=== PATIENT | male | born 1935 | race Caucasian/White ===

== ENCOUNTER → 2016-08-18 | Outpatient (CLI) | payer OTHER, BC | LOC: FIMAGING 13:34 | PROVIDERS: ATTEND Family Medicine | DX: R07.89 Other chest pain (principal); R06.09 Other forms of dyspnea ==

== ENCOUNTER 2016-11-03 11:41 | Emergency (ER) | payer OTHER, BC ==
--- NOTE | 2016-11-03 13:10 | EDPHY ---
HPI/HX/ROS/PE/MDM Narrative: CHIEF COMPLAINT: Pill stuck in throat HPI: This patient is an 81 year old male complaining of a sensation of a pill stuck in his throat. Around 8:30 this morning, his gave him two Advil cold pills to help with a cough and stuffy nose developed 1.5 days ago. He tried to swallow the pill, and felt that it became stuck at the back of his throat. He has been able to swallow saliva and drink some water and root beer. He has not attempted any food. No shortness of breath. No history of problems with is throat or esophagus. He denies sore throat associated with his cold symptoms. REVIEW OF SYSTEMS: Aside from elements discussed in the HPI, a comprehensive 10-point review of systems was reviewed and is negative. PMH: Triple bypass 6 years ago. SOCIAL HISTORY: . Lives in [place]. PHYSICAL EXAM: General:Patient is alert, in no acute distress. ENT:Eyes are normal to inspection. ENT inspection normal. Neck: Normal inspection. Full range of motion. Respiratory:No respiratory distress. Breath sounds normal bilaterally. Cardiovascular: Regular rate and rhythm. Strong peripheral pulses. Normal cap refill. Abdomen:The abdomen is nontender to palpation. There are no peritoneal signs. There are normal bowel sounds. Back: Normal to inspection. No tenderness to palpation. Skin: Normal color. No rash. Warm and dry. Extremities: Normal appearance. Full range of motion. Neuro: Oriented x3. Normal motor function. Normal sensory function. Portions of this note were transcribed by an ED scribe. I personally performed the history, physical exam, and medical decision making; and confirm the accuracy of the information in the transcribed note. ED Course: No foreign body noted on exam. Plan for x-ray to further evaluate for foreign body. Plan to give patent Coca-Cola for relief of symptoms, dissolve and wash down pill. X-ray shows no acute abnormalities. Patient feels relief after Coca-Cola administration. Plan to discharge home in good condition. Return precautions discussed. He is comfortable with this plan. MDM: This patient presents with sensation of ibuprofen pill being stuck in his throat. He is able to tolerate water and his own secretions. This medication is not concerning for causing an esophageal erosion. The patient's symptoms were resolved with coca-cola, and his XR is normal. I think he is safe for further outpatient workup. - Data Points Imaging Results: Imaging Impressions Soft Tissue Neck X-Ray 11/03/16 13:10 Impression: 1. Normal radiographic appearance of the hypopharynx, proximal trachea, and proximal esophagus. No radiopaque foreign object identified. Esophagram may be necessary if there is concern for a nonradiopaque tablet within in the esophagus. 2. Multilevel cervical degenerative disk disease. Imaging: I viewed and interpreted images myself General Time Seen by Provider: 11/03/16 12:54 Initial Vital Signs: Initial Vital Signs Temperature (C) 36.7 C 11/03/16 11:42 Heart Rate 76 11/03/16 11:42 Respiratory Rate 18 11/03/16 11:42 Blood Pressure 108/74 11/03/16 11:42 O2 Sat (%) 91 L 11/03/16 11:42 O2 Delivery Mode Room Air Allergies/Adverse Reactions: No Allergies [NKA] Allergy (Verified 11/03/16 11:42) Home Medications: Medication Instructions Recorded Aspirin [Aspir 81] 81 mg PO DAILY 08/20/12 Atorvastatin Calcium [Lipitor 40 40 mg PO DAILY20 08/20/12 mg (*)] Niacin [Niacin 500 mg (*)] 500 mg PO HS 10/01/14 metFORMIN HCL [Glucophage 500 mg 500 mg PO DAILY 10/01/14 (*)] Bp Med 11/03/16 Departure - Departure Disposition: Home, Routine, Self-Care Clinical Impression: Pill dysphagia Condition: Good Instructions: Dysphagia (ED) Additional Instructions: 1. Follow up with a GI specialist within two weeks for continued evaluation of your difficulty swallowing. 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 2. Return to the emergency department if you develop difficulty breathing, continued difficulty swallowing, increased pain or discomfort in your throat, or other worsening of condition. Referrals: Yon Lugo MD [Primary Care Provider] - As per Instructions Otis Vegas MD [Medical Doctor] - As per Instructions Report Scribed for: Be Nguyễn Report Scribed by: Chiquita Yan Date of Report: 11/03/16 Time of Report: 14:06
[2016-11-03 15:39] VITALS: BP 108/63; PULSE 78; RESP 20; TEMP 98.2; O2SAT 98
== END 2016-11-03 15:39 | disposition home or self-care (01) ==
DX: R13.19 Other dysphagia (principal); Z79.82 Long term (current) use of aspirin; X58.XXXA Exposure to other specified factors, initial encounter; Y99.8 Other external cause status

== ENCOUNTER 2016-12-24 23:34 | Emergency (ER) | payer OTHER, BC ==
[2016-12-25] MEDS ORDERED: GLUCAGON,HUMAN RECOMBINANT 1 MG VIAL IVP ONE (00:10)
[2016-12-25 00:18] VITALS: TEMP 97.9
--- NOTE | 2016-12-25 00:57 | EDPHY ---
H & P Stated Complaint: fb in throat Time Seen by Provider: 12/24/16 23:52 HPI/ROS: HPI The patient presents with foreign body sensation in throat which has been present for the last several hours. This began after taking a dose of his niacin. He feels he has the pill lodged in his throat currently. He tried drinking some soda at home without any improvement in his symptoms, thus he came into the emergency room. He is unable to tolerate secretions, and has to spit into a bucket. He has a history of similar about 2 months ago, seen in the emergency room for this. The pills seemed to dislodge itself. He was referred to Gastroenterology , however the patient says he was seen by Ear Nose and Throat and some sort of endoscopy was performed. He has been referred to physical therapy.. REVIEW OF SYSTEMS Constitutional: No fever, no chills. Eyes: No discharge. ENT: No sore throat. Cardiovascular: No chest pain, no palpitations. Respiratory: No cough, no shortness of breath. Gastrointestinal: No abdominal pain, no vomiting. Genitourinary: No hematuria. Musculoskeletal: No back pain. Skin: No rashes. Neurological: No headache. PMHx: CAD, hypertension Soc Hx: Lives at home with his PHYSICAL General Appearance: Alert, uncomfortable appearing, coughing, spitting into a basin Eyes: Pupils equal and round no pallor or injection ENT, Mouth: Voice is slightly hoarse, Mucous membranes moist Respiratory: There are no retractions, lungs are clear to auscultation Cardiovascular: Regular rate and rhythm Gastrointestinal: Abdomen is soft and non-tender, no masses, bowel sounds normal Neurological: A&O, moves all extremities Skin: Warm and dry, no rashes Musculoskeletal: Neck is supple non tender Extremities: symmetrical, full range of motion Psychiatric: Patient is oriented X 3, there is no agitation Source: Patient, Old records Exam Limitations: No limitations - Personal History Current Tetanus/Diphtheria Vaccine: Unsure Current Tetanus Diphtheria and Acellular Pertussis (TDAP): Unsure Tetanus Vaccine Date: 2005 - Medical/Surgical History Hx Asthma: No Hx Chronic Respiratory Disease: No Hx Diabetes: No Hx Cardiac Disease: Yes Hx Renal Disease: No Hx Cirrhosis: No Hx Alcoholism: No Hx HIV/AIDS: No Hx Splenectomy or Spleen Trauma: No Other PMH: CAD w/ stent 2000, CABG 2010,Prostate CA, PROSTATECTOMY, CIRA, HTN, Hernia Repair - Social History Smoking Status: Never smoked Constitutional: Initial Vital Signs Temperature (C) 36.6 C 12/25/16 00:16 Heart Rate 80 12/25/16 00:16 Respiratory Rate 18 12/25/16 00:16 Blood Pressure 113/75 12/25/16 00:16 O2 Sat (%) 91 L 12/25/16 00:16 O2 Delivery Mode Room Air O2 (L/minute) 2 Allergies/Adverse Reactions: No Allergies [NKA] Allergy (Verified 11/03/16 11:42) Home Medications: Medication Instructions Recorded Aspirin [Aspir 81] 81 mg PO DAILY 08/20/12 Atorvastatin Calcium [Lipitor 40 40 mg PO DAILY20 08/20/12 mg (*)] Niacin [Niacin 500 mg (*)] 500 mg PO HS 10/01/14 metFORMIN HCL [Glucophage 500 mg 500 mg PO DAILY 10/01/14 (*)] Bp Med 11/03/16 Medical Decision Making - Diagnostics Imaging Results: Soft tissue neck x-ray demonstrates no obvious foreign body, no airway edema, interpreted by me, radiology interpretation is pending. Differential Diagnosis: This is a an 81-year-old male with foreign body sensation in throat with difficulty managing his secretions. Differential diagnosis includes aspiration , esophageal foreign body. In the emergency department, the patient was given a trial of Coca Cola which did not improve his symptoms. X-ray was obtained which demonstrated no obvious foreign body. He was ordered for glucagon, however before this he began to feel that the pill was passing. He was observed for about an hour after he felt the pill pass and continued to feel well. He had no foreign body sensation and was able to drink fluids without difficulty. I wonder if he has an upper esophageal stricture or blockage of some sort. He has been evaluated by ENT, I have encouraged him to follow up with Gastroenterology as well. He will be discharged from the emergency room. I have given him a dose of viscous lidocaine p.o. for some sore throat symptoms that he is currently having. - Data Points Medications Given: Discontinued Medications Glucagon (Glucagen) 1 mg IVP EDNOW ONE Stop: 12/25/16 00:11 Last Admin: 12/25/16 01:52 Dose: Not Given Lidocaine (Lidocaine 2% Viscous) 5 ml PO EDNOW ONE Stop: 12/25/16 01:42 Last Admin: 12/25/16 01:52 Dose: Not Given Departure - Departure Disposition: Home, Routine, Self-Care Clinical Impression: Foreign body in throat Qualifiers: Encounter type: initial encounter Qualified Code(s): T17.208A - Unspecified foreign body in pharynx causing other injury, initial encounter Condition: Good Instructions: Foreign Body in Pharynx (ED) Additional Instructions: Please follow-up with the Ear Nose and Throat doctor you have been seeing. You may need to follow up with Gastroenterology as well. Please call the doctor your previously referred to. Return to the ER if your worse in any way. Referrals: Yon Lugo MD [Primary Care Provider] - As per Instructions Otis Vegas MD [Medical Doctor] - As per Instructions
[2016-12-25] MEDS ORDERED: LIDOCAINE 2% VISCOUS 15 ML UDCUP PO ONE (01:41)
[2016-12-25 01:53] VITALS: BP 103/64; PULSE 66; RESP 16; O2SAT 91
== END 2016-12-25 01:53 | disposition home or self-care (01) ==
DX: T17.208A Unspecified foreign body in pharynx causing other injury, initial encounter (principal); I25.10 Atherosclerotic heart disease of native coronary artery without angina pectoris; I10 Essential (primary) hypertension; Z85.46 Personal history of malignant neoplasm of prostate; Z79.82 Long term (current) use of aspirin; X58.XXXA Exposure to other specified factors, initial encounter

== ENCOUNTER → 2017-01-22 | Outpatient (CLI) | payer OTHER, BC | LOC: FIMAGING 11:27 | PROVIDERS: ATTEND Internal Medicine | DX: K22.2 Esophageal obstruction (principal); K21.9 Gastro-esophageal reflux disease without esophagitis; K31.89 Other diseases of stomach and duodenum ==

== ENCOUNTER 2018-01-20 17:56 | Inpatient (IN) | payer OTHER, BC ==
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
[2018-01-20 18:20] LABS: PLATELET COUNT 227 10^3/uL (150-400)
[2018-01-20] MEDS ORDERED: ONDANSETRON DISINTEGRATING 4 MG TAB PO PRN (20:48)
[2018-01-20] MEDS ORDERED: ACETAMINOPHEN 325 MG TAB PO PRN (20:48)
[2018-01-20] MEDS ORDERED: ONDANSETRON 4 MG/2 ML VIAL IVP PRN (20:48)
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
[2018-01-20] MEDS: ALBUTEROL 3 ML DEYVIAL IH SCH (21:46)
[2018-01-20] MEDS ORDERED: FUROSEMIDE 20 MG/2 ML VIAL IVP ONE (22:21)
--- NOTE | 2018-01-21 00:03 | CPEKG ---
Test Reason : OPEN Blood Pressure : / mmHG Vent. Rate : 053 BPM Atrial Rate : 053 BPM P-R Int : 294 ms QRS Dur : 075 ms QT Int : 475 ms P-R-T Axes : 075 047 040 degrees QTc Int : 446 ms Sinus rhythm Prolonged DE interval Borderline ST elevation, lateral leads Confirmed by Mary Carmen Navarro ([id number] on 01/21/2018 12:03:16 AM Referred By: Confirmed By:Mary Carmen Navarro
[2018-01-21] MEDS: ALBUTEROL 3 ML DEYVIAL IH SCH ×3 (05:20→16:18)
[2018-01-21] MEDS ORDERED: BISOPROLOL FUMARATE 5 MG TAB PO SCH (09:00)
[2018-01-21] MEDS: ASPIRIN EC 81 MG TAB PO SCH (10:26)
[2018-01-21] MEDS: ATORVASTATIN CALCIUM 40 MG TAB PO SCH (10:26)
--- NOTE | 2018-01-21 10:29 | ECHO ---
[email or web address] [address] [address] Main: [phone] Fax: Transthoracic Echocardiogram Name: DERRICK DIAS MR#: [id number] Study Date: 01/21/2018 Study Time: 08:20 AM Date of : 1935 Age: 82 year(s) Height: 175.3 cm (69 in.) Weight: 78.02 kg (172 lb.) BSA: 1.94 m2 Gender: Male Examination: Echo Indication: Cardiac: syncope, Murmur Image Quality: Contrast: Requested by: Trinidad Gaxiola BP: 94 mmHg/52 mmHg Heart Rate: Rhythm: Normal sinus rhythm Indication: Cardiac: syncope, Murmur Procedure Staff [employer] Attendant: Arnel Melendez RDCS Reading Physician: Denia Brown MD Requesting Provider: Conclusions: Normal size left ventricle. No LV hypertrophy. Normal global systolic LV function. EF is 78 %. No regional wall motion abnormality. Normal size right ventricle. Normal RV function. The left atrium is mildly dilated. Moderate mitral valve regurgitation is present. Severe aortic valve calcification is present. The aortic valve is tri-leaflet. Mild aortic valve regurgitation is present. The AV mean PG is 23 mmhg with a Av Vmax of 3.2 m/s The NDSI is .24 which confirms severe aortic stenosis.. Moderate tricuspid regurgitation is present. The pulmonary artery pressure is severely increased. Right Ventricular systolic pressure is measured at 85 mmHg. Mild pulmonic valve regurgitation is noted. Compared to the previous exam of 10/02/2014 the aortic stenosis and mitral stenosis have progressed. The pulmonary pressures are now severely elevated. . Measurements: Chambers Valvular Assessment AV/MV Valvular Assessment TV/PV Normal Normal Normal Name Value Range Name Value Range Name Value Range IVSd (2D): 0.8 cm (0.6 cm-1.1 AV Vmax: 3.23 m/s (1 m/s-1.7 TR Vmax: 4.48 mm/s ( - ) cm) m/s) TR PGmax: 80 mmHg ( - ) LVDd (2D): 4.2 cm (4.2 cm-5.9 AV maxP mmHg ( - ) syst. PAP: 85 mmHg ( - ) cm) AV meanP mmHg ( - ) Patient: DERRICK DIAS Study Date: 01/21/2018 Page 1 of 2 08:20 AM LVDs (2D): 2.3 cm (2.1 cm-4 LVOT Vmax: 0.87 m/s (0.7 m/s-1.1 PV Vmax: 0.81 m/s (0.6 m/s-0.9 cm) m/s) m/s) LVPWd (2D): 0.9 cm (0.6 cm-1 JOHN (Vmax): 0.8 cm2 ( - ) PV PGmax: 3 mmHg ( - ) cm) JOHN (VTI): 0.7 cm ( - ) LVOTd 1.9 cm 1.9 cm mm MV E Vmax: 1.27 m/s ( - ) LVEF (2D): 78 (>=54 %) MV A Vmax: 0.66 m/s ( - ) RVDd(2D): 4.0 cm (1.9 cm-3.8 MV E/A: 1.92 ( - ) cmmm) MV meanP mmHg ( - ) MVA (Vmax): 1.2 m/s ( - ) Continued Measurements: Chambers Valvular Assessment AV/MV Valvular Assessment TV/PV Name Value Name Value Name Value LADs Lon.0 cm MV Annulus: 3.2 cm CVP (est.): 5 mmHg LA Area: 21.8 cm2 MV VTI: 49.20 cm LA Volume: 66 ml MR ERO: 0.180 cm2 LA Volume Index: 34.0 ml/m2 MR PISA radius: 6 mm MR Reg. Volume: 30 ml MR Reg. Fraction: 8 % Findings: Left Ventricle: Normal size left ventricle. No LV hypertrophy. Normal global systolic LV function. EF is 78 %. No regional wall motion abnormality. Right Ventricle: Normal size right ventricle. Normal RV function. Left Atrium: The left atrium is mildly dilated. Right Atrium: The right atrium is normal in size. Mitral Valve: Moderate mitral valve regurgitation is present. Mild mitral valve stenosis is present. There is moderate to severe mitral annular and proximal leaflet calcification.. Aortic Valve: Severe aortic valve calcification is present. The aortic valve is tri-leaflet. Mild aortic valve regurgitation is present. The AV mean PG is 23 mmhg with a Av Vmax of 3.2 m/s The NDSI is .24 which confirms severe aortic stenosis.. Tricuspid Valve: Moderate tricuspid regurgitation is present. The pulmonary artery pressure is severely increased. Right Ventricular systolic pressure is measured at 85 mmHg. Pulmonic Valve: The pulmonic valve is normal in appearance. Mild pulmonic valve regurgitation is noted. Aorta: The aorta is normal. Pericardium: No pericardial effusion. Exam Comments: Compared to the previous exam of 10/02/2014 the aortic stenosis and mitral stenosis have progressed. The pulmonary pressures are now severely elevated. . (No Signature Object) Patient: DERRICK DIAS Study Date: 01/21/2018 Page 2 of 2 08:20 AM [id number]
[2018-01-21] MEDS ORDERED: FUROSEMIDE 20 MG/2 ML VIAL IVP ONE (13:47)
--- NOTE | 2018-01-21 13:54 | HOSPPROG ---
Hospitalist Progress Note Assessment/Plan: #syncope #Hypotension #Bradycardia #severe aortic stenosis #pulm HTN #Hypoxemia Plan: Additional Lasix today Held BB this morning due to bradycardia and hypotension Hold DORINDA-I tonight would benefit from restarting both BB and DORINDA-I but will need to see what BP does Cards consult, I discussed with them today Will need to determine urgency/need for Aortic stenosis mgmt SCD's PT change to inpatient Subjective: still with hypoxemia. occasional cough Objective: Vital Signs Temp Pulse Resp BP Pulse Ox 36.5 C 53 L 14 105/60 89 L 01/21/18 11:39 01/21/18 11:54 01/21/18 11:39 01/21/18 11:39 01/21/18 11:39 Microbiology 01/21/18 10:25 Respiratory Panel (PCR) - Final Nasal, Sinus - Swab No Organism Detected 01/20/18 01/21/18 01/22/18 05:59 05:59 05:59 Intake Total 200 Output Total 1300 500 Balance -1100 -500 - Physical Exam Constitutional: no apparent distress Eyes: PERRL Ears, Nose, Mouth, Throat: moist mucous membranes Cardiovascular: regular rate and rhythym, edema (trace LE) Respiratory: no respiratory distress, reduced air movement, rhonchi Gastrointestinal: normoactive bowel sounds, soft, non-tender abdomen Skin: warm Neurologic: AAOx3 Psychiatric: interacting appropriately, not anxious, not encephalopathic Lymph, Heme, Immunologic: No petechiae ICD10 Worksheet Patient Problems: Problems Problem Status Onset Syncope Acute Chest pain with high risk for cardiac etiology Acute
[2018-01-21] MEDS ORDERED: ALBUTEROL 3 ML DEYVIAL IH PRN (16:05)
--- NOTE | 2018-01-21 16:06 | ASMTCMCOM ---
CM Note CM Note Notes: 01/21/2018 Case Management Note Met pt and shazia at [phone] during rounds this morning. Pt admitted after episode of syncope and hypoxia. Pt is requirig O2 and lasix currently. ECHO planned. PT eval is pending. Case Management d/c poc: To be determined. Case Management to follow. Date Signed: 01/21/2018 04:05 PM Electronically Signed By:Santa Johnson RN
--- NOTE | 2018-01-21 16:14 | PDMN ---
Medical Necessity Medical necessity: Change to IP, as of 01/21/18, per MD & MCG [id number]; los >2 mn for ongoing management of syncope w/hypotension, bradycardia, hypoxemia & severe aortic stenosis; requiring further monitoring, Cardiology consult & med management; comorbid advanced age, CAD, CABG, HTN
[2018-01-21] MEDS ORDERED: ENALAPRIL MALEATE 5 MG TAB PO SCH (21:00)
--- NOTE | 2018-01-22 00:37 | GCON ---
CARDIOLOGY CONSULTATION REFERRING PHYSICIAN: Abraham Miranda MD INDICATION FOR CARDIOLOGY CONSULTATION: Syncopal event, known history of CAD. HISTORY OF PRESENT ILLNESS: The patient is an 82-year-old male, who is known to our practice. He ortiz s significant past history that includes CAD in which he underwent a CABG x3 vessels in 2010 (SVG to RCA, SVG to OM, THOMASON to the LAD), paroxysmal atrial fibrillation, chronic diastolic heart failure , h ypertension, hyperlipidemia, and noted valvular heart disease off most recent echocardiogram in 2014, with mild and MR. The patient reports he has been in his normal state of health. He denies of any chest pressure or pa in. He reports he was driving home. He was looking at new cars up in [place], then driving home. When he was at a stoplight, he was waiting, and not feeling as any time had passed, a bystander was k nocking on his passenger window, asking him if he was okay. Per the patient, the bystander told him that he was slumped over. The patient feels this loss of consciousness was approximately between 30 seconds to 2 minutes. 911 was called, and he has brought to the emergency department for further nabeel luation. He reports at the time of his episode, he did not notice any palpitations. He denies of an y incontinence of bowel or stool. He denies of any biting of his tongue, and the bystander did not r eport any seizure activity. Patient, as mentioned above, said that he had been in his normal state h ealth, denying of any shortness of breath, orthopnea, PND. The patient reports he has had mild perip heral edema, but denies of any other episodes of lightheadedness, near-syncope, or syncopal events. Upon arrival of EMS, it was noted that his oxygen level was in the 80s and heart rate in the 50s. Pe r emergency department notes, patient's blood sugar was within normal limits at the scene . He has b rought to the hospital, for further evaluation. Upon arrival, a 12-lead electrocardiogram was done, which showed sinus rhythm with a significant firs t degree AV block, normal axis, no acute ST or T-wave abnormalities. Interview is being done with hi s , and she does mention that she feels that he has been slowing down, more fatigued for the last 2-3 weeks. In the ER, it was noted that his laboratory studies did note a mildly elevated proBNP of 2130, his troponin level was normal at 0.01. He was admitted to the PCU. His chest x-ray did appea r as if he had some mild volume overload, and with his hypoxia, he was given, on 3 different occasion s, Lasix at 20 mg p.o. q. day, which he reports he has had significant diuresis with. PAST MEDICAL HISTORY: The patient with significant past medical history that includes coronary arter y disease in which he underwent CABG in 2010, hyperlipidemia, paroxysmal atrial fibrillation, ___ diastolic heart failure, and known valvular heart disease. He is also noted to have history of p rostate cancer. SURGICAL HISTORY: Includes coronary artery bypass surgery in 2011 x3 vessels, hernia repair, rotator cuff repair, cataract surgery, and esophageal dilation. FAMILY HISTORY: The patient does mention family history of heart disease, but all over the age of 60 . SOCIAL HISTORY: He denies of any family history of sudden cardiac . SOCIAL HISTORY: The patient is semiretired. 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 He is . 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 Denies of any tobacco or alcohol use. Juancarlos ricarda pf any illicit drug use. ALLERGIES: Patient reports no drug allergies. MEDICATIONS AT HOME: Include 2.5 mg p.o. h.s., bisoprolol 5 mg p.o. daily, atorvastatin 4 0 mg p.o. daily, and aspirin 81 mg p.o. daily. REVIEW OF SYSTEMS: A 10-point review of systems done on patient. All negative except as mentioned a lisandro. PHYSICAL EXAMINATION: GENERAL APPEARANCE: Thin, well-groomed male. He is alert and orien dayo to person, place, time, and situation. Appears to be under no acute distress. VITAL SIGNS: Curr ent are blood pressure 105/60, heart rate of 63, saturating 93% on 4 L nasal cannula, temperature of 36.5-degrees Celsius. HEENT: Head is normocephalic. Lips and tongue are pink and moist with no sig ns of cyanosis. Conjunctivae pink. NECK: Trachea is midline, +2 carotid pulses bilateral, no auscu ltated bruits, jugular vein elevation of 5 cm above sternal notch. RESPIRATORY: Lungs are diminishe d in bases, no rhonchi, rales, or wheezes noted, no accessory muscle use, no intercostal muscle retra ction noted. CARDIAC: Regular rate, regular rhythm, S1, S2, 3/6 systolic murmur noted in upper ches t. ABDOMEN: Soft, nontender, bowel sounds x4 quadrants, no organomegaly, no palpable masses. SKIN: [place], warm, dry, no cyanosis, no clubbing, trace to +1 peripheral edema bilateral lower extremities . VASCULAR: +2 carotids, bilateral; +2 radials, bilateral; +1 dorsal pedal and posterior tibial pul ses, bilateral. LABORATORY STUDIES: Drawn on admission, show WBCs of 6.79, hemoglobin of 16.0, hematocrit of 46.9, p latelet count 227. D-dimer less than 0.27. Sodium 136, potassium 4.9, chloride 105, CO2 23, BUN 24, creatinine 1.3, glucose 108, calcium 9.0. Troponin 0.01. ProBNP of 2130. Prolactin 0.03. Repeate d troponin level done at midnight was less than 0.012. DIAGNOSTIC STUDIES: Electrocardiogram as mentioned above. Chest x-ray mentioned above. Echocardiog hari done today showing normal LV size, no LVH, normal LV systolic function with EF of 78%, no regiona l wall motion abnormalities, normal RV size and function, LA was moderately dilated, moderate MR was present, severe aortic calcification and mild aortic regurgitation, mean peak gradient across the aor tic valve was 23 mmHg, which confirms severe aortic stenosis, moderate TR, significantly elevated RVS P at 85 mmHg. In comparison to previous studies, the patient's aortic stenosis and mitral stenosis h ave worsened. ASSESSMENT AND PLAN: 1. Syncopal event: Concerning with patient's significant past history of coronary artery disease, n meron found severe aortic stenosis and mild mitral stenosis, and elevated pulmonary pressures. The pa tient was noted to be mildly bradycardic on initial examination, but has had no malignant arrhythmias or pauses. Currently, his beta rolando is on hold. We will continue to monitor him on continuous c ardiac monitoring. Further workup needed for evaluation of ischemia, his aortic stenosis, and pulmon letha hypertension. 2. Coronary artery disease: Patient with known history of coronary artery bypass grafting. Denies of any chest pressure or pain. No wall motion noted on echocardiogram of left ventricle. No signifi cant EKG changes suggesting of ischemia. Negative troponins x2. The patient is currently asymptomat ic of chest pressure or pain. With recent syncopal event, and past history, I do think further evalu ation for ischemia should be done. With new finding of critical aortic stenosis, patient may need to have valve replacement, and cardiac catheterization should be done prior to this. Will hold off at this time due to his shortness of breath, but will plan on potentially doing a left heart catheteriza tion before discharge. Will continue him on home dose aspirin therapy. 3. Valvular heart disease: Patient known to now have severe aortic stenosis and mild mitral stenosi s. This also could be a potential cause of his symptoms. He has had no significant left ventricular dilation. Due to his history of coronary artery disease and recent syncopal event, I have asked CT surgery to evaluate the patient for potential surgery to fix. If he is not considered a candidate fo r an open procedure, potentially he may be a candidate for transcatheter aortic valve replacement. 4. Pulmonary hypertension: Patient noted to have significantly elevated pulmonary hypertension. Di uresis has been given. He continues to be hypoxic off oxygen. Continue oxygen therapy. Will consid er doing a right heart catheterization at the time we do a left heart catheterization. 5. Chronic diastolic heart failure: Patient noted to have elevated BNP on admission and significant ly elevated pulmonary pressures. He has been diuresed. I do think we need to be cautious with his e levated pulmonary pressures and critical aortic stenosis, due to the patient needing preload. This s hould be done gradually. 6. Hyperlipidemia: Will continue patient on home statin therapy. Thank you for this consultation. I have also consulted CT surgeon, speaking to BERNY Gabriel, of [facility], who will notify Dr. Pedro to evaluate patient, and discussed with Dr. Miranda and Dr. Brown. /[id number]/MODL
[2018-01-22] MEDS: ASPIRIN EC 81 MG TAB PO SCH (08:15)
[2018-01-22] MEDS: ATORVASTATIN CALCIUM 40 MG TAB PO SCH (08:15)
--- NOTE | 2018-01-22 09:17 | HOSPPROG ---
Hospitalist Progress Note Assessment/Plan: #Syncope: unclear if true syncopal event. Echo with VHD, normal EF. Negative trops #VHD: moderate-severe , MS, severe TR. Appreciate Dr. Olivia's eval. BLAKE to further evaluate. Has h/o of esophageal stricture. Dr Tao was consulted for dilation tomorrow. -will need dobutamine stress echo and then R/L heart cath. May potentially benefit from valvular surgery #HLD: statin #CKD: Cr stable #Suspected RJ: outpatient sleep study #PVCs with pauses 1.4 sec. Lytes at goal #CAD: CABG 2010. ASA, statin #Diet: cardiac #Disp: inpatient admission for EGD, stress testing. Case discussed with Dr. Olivia Subjective: no chest pain or dizziness Objective: Vital Signs Temp Pulse Resp BP Pulse Ox 36.8 C 66 12 94/51 L 96 01/22/18 07:45 01/22/18 07:45 01/22/18 07:45 01/22/18 07:45 01/22/18 07:45 Laboratory Results 01/22/18 03:43 01/21/18 01/22/18 01/23/18 05:59 05:59 05:59 Intake Total 150 Output Total 1130 625 Balance -756 -590 - Time Spent With Patient Time Spent with Patient: greater than 35 minutes Time Spent with Patient: Greater than 35 minutes spent on this patients care, greater than 50% of time spent counseling, educating, and coordinating care regarding the above mentioned plan. - Physical Exam Constitutional: no apparent distress Eyes: PERRL Ears, Nose, Mouth, Throat: moist mucous membranes Cardiovascular: regular rate and rhythym, systolic murmur, diastolic murmur Respiratory: no respiratory distress Gastrointestinal: normoactive bowel sounds Genitourinary: no bladder fullness Skin: warm Musculoskeletal: full muscle strength Neurologic: AAOx3, CN II-XII Intact Psychiatric: interacting appropriately ICD10 Worksheet Patient Problems: Problems Problem Status Onset Syncope Acute Chest pain with high risk for cardiac etiology Acute
--- NOTE | 2018-01-22 14:05 | GCON ---
DATE OF CONSULTATION: 01/22/2018 The patient is seen at the request of Dr. Brown with the patient's permission. IMPRESSION: 1. Concern for syncopal presentation, not clear. 2. Aortic stenosis, at least moderate if not severe. 3. Mitral stenosis, at least moderate if not severe. 4. Arteriosclerotic heart disease, status post coronary bypass grafting in [address] Harvey witho ut complications. 5. Pulmonary hypertension of uncertain etiology. Suspect more critical mitral stenosis than tj oshea on echo. 6. Asymptomatic hypoxemia likely due to underlying cardiac disease. RECOMMENDATIONS: This gentleman should be more thoroughly evaluated for multivalvular dysfunction. He does have evidence of at least moderate if not severe aortic stenosis, mitral stenosis, and tricus pid regurgitation in the face of previous coronary bypass grafting. I would favor a BLAKE to evaluate his mitral valve closer and likely a dobutamine stress echo, evaluating both aortic and mitral valves . If in fact the mitral stenosis is not severe, then he needs a more thorough pulmonary evaluation t o rule out underlying lung disease, although he carries no diagnosis, does not wear oxygen as an outp atient, was never exposed, and has no cigarette abuse. Again, I feel that most of his pulmonary hype rtension is secondary to mitral stenosis. If in fact he has no significant mitral disease, then TAVR might be considered if dobutamine echo suggests velocities greater than 4. He would need restudy of his coronary grafts and coronary anatomy prior to making that decision. I would also perform a righ t and left heart cath and look at the gradient to see if in fact it does suggest mitral stenosis vers us primary pulmonary disease. CHIEF COMPLAINT: A very pleasant 82-year-old, relatively active, otherwise healthy gentleman who con ducts all his own daily activities of living. Lives with his and is accompanied by his son pres banda and 2 other children who are involved in his care. He was found unresponsive at a stoplight, r esponded to knocking on the window. It was unclear whether he had a syncopal episode or just fell as leep. He denies chest pain, shortness of breath, or limited activities because of cardiac symptoms. He does not do anything extremely physical and has stopped walking around the [place] his home for uncertain reasons. MEDICATIONS: At home were aspirin, atorvastatin, and blood pressure medications not documented. FAMILY HISTORY: Noncontributory. SURGICAL HISTORY: Coronary bypass grafting 2010. OTHER MEDICAL HISTORY: Hypertension, hyperlipidemia. SOCIALLY: He never smoked. Never drank. Does not use drugs. Is and lives with his kasey o is at the bedside. PHYSICAL EXAMINATION: GENERAL: This is a slender, elderly gentleman who is very alert, oriented, co operative, and without evidence of memory difficulties. HEENT: Normocephalic. PERRLA. EOMI. NECK : Has bilateral bruits which may be transmitted. CARDIOVASCULAR: Heart rate is regular with multip le murmurs across the precordium. LUNGS: Clear. ABDOMEN: Scaphoid, nontender. Bowel sounds are a ctive. EXTREMITIES: Pedal pulses are 1+ and symmetrical. Trace extremity edema. LAB WORK: Reviewed. Echo was reviewed. I suspect that his mitral stenosis is under-represented by the echo. There was heavy calcification in both anterior and posterior leaflets as well as the aorti c valve appears to be severely stenotic based on my review with Dr. Olivia. /[id number]/MODL
--- NOTE | 2018-01-22 14:21 | ASMTCMCOM ---
CM Note CM Note Notes: 01/22/2018 Case Management Note Discussed pt during rounds this morning. and friend present. PT note today states "No PT Follow Up". Case Management d/c poc: Home independent with support from with follow up as directed. Case Management to follow. Date Signed: 01/22/2018 02:20 PM Electronically Signed By:Santa Johnson RN
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
--- NOTE | 2018-01-23 09:47 | PDGENHP ---
History & Physical Chief Complaint: Dysphagia History of Present Illness: Valvular heart disease with history of esophageal stricture and dysphagia. Needs EGD for dilation prior to performance of BLAKE today. Pertinent Past, Social, Family History: PMH: Heartburn. Esophageal stricture with prior dilation 01/2017. Valvular heart disease. CHF (diastolic). Paroxysmal atrial fibrillation. Prostate cancer Relevant Physical Exam: NAD. Coarse BS with rales in bases. RRR. TYRESE 3/6 LSB. GI soft. NABS. NT/ND Cardiorespiratory Assessment: ASA III. EGD with planned esophageal dilation under MAC
[2018-01-23] MEDS ORDERED: fentaNYL 100 MCG/2 ML INJ ONE (09:53)
--- NOTE | 2018-01-23 10:02 | PDANEPAE ---
ANE Past Medical History - Cardiovascular History Hx Hypertension: No Hx Arrhythmias: No Hx Chest Pain: Yes Hx Coronary Artery / Peripheral Vascular Disease: Yes Hx CHF / Valvular Disease: Yes Hx Palpitations: No - Pulmonary History Hx COPD: No Hx Asthma/Reactive Airway Disease: No Hx Recent Upper Respiratory Infection: No Hx Oxygen in Use at Home: No Hx Sleep Apnea: No Sleep Apnea Screening Result - Last Documented: Positive - Endocrine History Hx Diabetes: No Hypothyroid: No Hyperthyroid: No Obesity: no - Chronic Pain History Chronic Pain: No ANE Review of Systems Review of Systems: ANE Patient History - Allergies Allergies/Adverse Reactions: No Allergies [NKA] Allergy (Verified 11/03/16 11:42) - Home Medications Home Medications: Aspirin [Aspir 81] 81 mg PO DAILY 08/20/12 [Last Taken 01/20/18] Atorvastatin Calcium [Lipitor 40 mg (*)] 40 mg PO DAILY 08/20/12 [Last Taken ] Bisoprolol Fumarate [Zebeta (*)] 5 mg PO DAILY 01/20/18 [Last Taken 01/20/18] Enalapril Maleate [Vasotec 2.5 MG (*)] 2.5 mg PO HS 01/20/18 [Last Taken ] - NPO status NPO Since - Liquids (Date): 01/22/18 NPO Since - Liquids (Time): 23:00 NPO Since - Solids (Date): 01/22/18 NPO Since - Solids (Time): 20:00 - Smoking Hx Smoking Status: Never smoked - Alcohol Use Alcohol Use: None ANE Labs/Vital Signs - Labs Result Diagrams: 01/20/18 18:06 01/23/18 03:19 - Vital Signs Blood Pressure: 98/58 Heart Rate: 64 Respiratory Rate: 16 O2 Sat (%): 90 Height: 175.26 cm Weight: 75.8 kg ANE Physical Exam - Airway Neck exam: decreased ROM Mallampati Score: Class 2 Mouth exam: poor dentition - Pulmonary Pulmonary: no rales or rhonchi - Cardiovascular Cardiovascular: regular rate and rhythym, systolic murmur - ASA Status ASA Status: III ANE Anesthesia Plan Anesthesia Plan: general endotracheal anesthesia
--- NOTE | 2018-01-23 10:34 | GIREPORT ---
Formerly [facility] Surgical Services - Endoscopy Department Patient Name: DERRICK DIAS Procedure Date: 01/23/2018 9:48 AM Patient Type: Inpatient Attending MD/ ER Physician: Be Tao MD Procedure: Upper GI endoscopy Indications: Dysphagia, Stenosis of the esophagus, For therapy of esophageal stenosi s Providers: Be Tao MD Medicines: General Anesthesia Complications: No immediate complications. Description of Procedure: After obtaining informed consent, the endoscope was passed under direct vision. Throughout the procedure, the patient's blood pressure, pulse, and oxygen saturations were monitored continuously. The Endoscope was intro duced through the mouth, and advanced to the second part of duodenum. The [facility] GI endoscopy was accomplished without difficulty. The patient tolerated th e procedure well. Findings: A web was found at the cricopharyngeus. A guidewire was placed and the scope was withdrawn. Dilation was performed with a Savary dilator with no resistance at 39 Fr and mild resistance at 45 Fr and 48 Fr. One benign-appearing, intrinsic stenosis was found at the gastroesophag eal junction. This stenosis was mildly severe and measured 1 cm (inner diam eter) x 1 cm (in length). The stenosis was traversed. A guidewire was placed and the scope was withdrawn. Dilation was performed with a Savary dilator w ith no resistance at 39 Fr and mild resistance at 45 Fr and 48 Fr. The stomach was normal. The examined duodenum was normal. Estimated Blood Loss: Estimated blood loss was minimal. 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 Dilated. - Benign-appearing esophageal stenosis. Dilated. - Normal stomach. - Normal examined duodenum. - No specimens collected. Recommendation: - Use Protonix (pantoprazole) 40 mg PO daily indefinitely. - Repeat upper endoscopy PRN for retreatment. - [facility] patient to [facility] for [facility] care. - Soft diet for 3 days. - Thank you for allowing me to be involved in the care of your patient. Attending Participation: I personally performed the entire procedure without the assistance of a fellow, resident or surg ical assistant production editor. Be Tao MD Be Tao MD 01/23/2018 10:34:02 AM This report has been signed electronicallyDavid MD Dinh Number of Addenda: 0 Note Initiated On: 01/23/2018 9:48 AM [email or web address]
[2018-01-23] MEDS ORDERED: PROPOFOL 200 MG/20 ML VIAL ONE (11:05)
--- NOTE | 2018-01-23 11:41 | POSTANESTH ---
Post Anesthetic Evaluation Cardiovascular Status: Similar to Pre-Op Cond Respiratory Status: Similar to Pre-op Cond. Level of Consciousness/Mental Status: Mildly Sleepy, Arousable Pain Control: Adequate, Prn Tx Ordered Nausea/Vomiting Control: Adequate, Prn Tx Ordered Complications Possibly Related to Anesthesia: None Noted (Appears confused at this time, but not agitated. Reassured.)
--- NOTE | 2018-01-23 13:27 | ECHO ---
[email or web address] [address] [address] Main: [phone] Fax: Transesophageal Echocardiography Name: DERRICK DIAS MR#: [id number] Study Date: 01/23/2018 Study Time: 10:30 AM Date of : 1935 Age: 82 year(s) Height: ( ) Weight: ( ) BSA: Gender: Male Examination: BLAKE Indication: Aortic stenosis Image Quality: Adequate Contrast: Requested by: Trinidad Gaxiola Heart Rate: Rhythm: BP: / Procedure Staff [employer] Sales Manager: Linda Douglass [facility] Reading Physician: Sorin Olivia MD Requesting Provider: BLAKE Exam Details Conclusions: The left ventricle cavity is small. Concentric LV hypertrophy. Normal global systolic LV function. Left atrial enlargement. No thrombus in left appendage. Right atrial enlargement. Mild prolapse of the posterior leaflet with probable small chordea rupture. Moderate, anteriorly directed mitral regurgitation. Mild mitral stenosis with a mean gradient of 3mmHg. The aortic valve is tri-leaflet. The max velocity across the AV is 3.6m/s, 31/52 mmHg mean/max pressure gradients, estimated JOHN = .9 by planimeter. NDSI = .19 which may be underestimated due to suboptimal LVOT angle and velcocity. Low cardiac output severe aortic stenosis. Dimension less Index: 0.21 consistent with severe . The pulmonary artery pressure is moderately to severely increased. Measurements: Chambers Valvular Assessment AV/MV Valvular Assessment TV/PV Normal Normal Normal Name Value Range Name Value Range Name Value Range LVOTd 1.9 cm 1.9 cm mm AV Vmax: 3.60 m/s (1 m/s-1.7 TR Vmax: 4.94 mm/s ( - ) m/s) TR PGmax: 98 mmHg ( - ) AV maxP mmHg ( - ) AV meanP mmHg ( - ) JOHN (VTI): 0.5 cm ( - ) MV meanP mmHg ( - ) Patient: DERRICK DIAS Study Date: 01/23/2018 Page 1 of 2 10:30 AM MV PHT: 0.055 s ( - ) MVA (Vmax): 1.1 m/s ( - ) MVA (PHT): 4.0 s ( - ) Additional Measurements: Valvular Assessment AV/MV Name Value MV VTI: 38.90 cm Additional Vessels Name Value Ao Ascendin.3 cm Findings: Left Ventricle: The left ventricle cavity is small. Concentric LV hypertrophy. Normal global systolic LV function. Right Ventricle: Normal size right ventricle. Normal RV function. Left Atrium: Left atrial enlargement. No thrombus is noted in the left atrium. Left Atrial Appendage: No thrombus in left appendage. Right Atrium: Right atrial enlargement. Mitral Valve: Mild prolapse of the posterior leaflet with probable small chordea rupture. Moderate, anteriorly directed mitral regurgitation. Mild mitral stenosis with a mean gradient of 3mmHg. There is mild thickening of the mitral valve leaflets. Aortic Valve: The aortic valve is tri-leaflet. Moderate aortic cusp calcification is present. Mild aortic valve regurgitation is present. The max velocity across the AV is 3.6m/s, 31/52 mmHg mean/max pressure gradients, estimated JOHN = .9 by planimeter. NDSI = .19 which may be underestimated due to suboptimal LVOT angle and velcocity. Low cardiac output severe aortic stenosis. Dimension less Index: 0.21 consistent with severe . Tricuspid Valve: The tricuspid valve appears normal. Moderate tricuspid regurgitation is present. The pulmonary artery pressure is moderately to severely increased. Pulmonic Valve: The pulmonic valve is normal in appearance. There is no pulmonic regurgitation seen. Pericardium: No pericardial effusion. l1n (No Signature Object) Patient: DERRICK DIAS Study Date: 01/23/2018 Page 2 of 2 10:30 AM [id number]
[2018-01-23] MEDS ORDERED: NITROGLYCERIN 0.4 MG BTL SL PRN (14:46)
[2018-01-23] MEDS ORDERED: TEMAZEPAM 15 MG CAP PO PRN (14:46)
--- NOTE | 2018-01-23 14:46 | PDCARPN ---
Cardiology Progress Note Assessment/Plan: Assessment: 1. Severe aortic stenosis 2. Mitral stenosis 3. Severe Pulmonary Hypertension with severe TR 4. Possible syncopal episode 5. CAD sp CABG in 2010 6. Esophageal stricture s/p dilatation performed today by Dr. Tao Plan: -BLAKE and EGD results reviewed with patient and family -NPO after midnight -dobutamine stress echocardiogram tomorrow to evaluate aortic valve gradients with increased cardiac output -left and right heart catheterization tomorrow -decision return regarding management of valvular disease will be made depending on the results of dobutamine stress echo and right left heart catheterization. 01/22/18 15:06 01/23/18 14:40 Subjective: Mr. Barlow had an uneventful evening. No syncopal events. Telemetry demonstrates sinus rhythm with occasional PVC and compensatory pause. Occasional nonconducted PAC with compensatory pause. All pauses under 2 sec. Asymptomatic. No arrhythmias. Mr. Barlow underwent successful EGD with esophageal dilatation followed by transesophageal echocardiogram. Please see reports for full details. Findings demonstrates severe aortic stenosis based on planimetry and dimensionless index. Findings demonstrate mild mitral stenosis with mean gradients ranging from 2 to 4 mm of mercury. Reviewed/Discussed With: family, hospitalist, multidisciplinary team Objective: Vital Signs (8 Hrs) Temp Pulse Resp BP Pulse Ox 01/23/18 14:36 68 13 114/64 97 01/23/18 13:00 36.0 C 67 16 103/60 97 01/23/18 12:22 36.2 C 70 12 116/64 92 01/23/18 11:59 36.6 C 01/23/18 11:56 22 H 107/64 89 L 01/23/18 11:51 24 H 111/65 87 L 01/23/18 11:46 28 H 112/65 90 L 01/23/18 11:41 26 H 114/70 92 01/23/18 11:40 24 H 91 L 01/23/18 11:31 22 H 142/82 H 90 L 01/23/18 11:26 21 H 150/84 H 89 L 01/23/18 11:24 36.8 C 01/23/18 10:02 64 16 98/58 L 90 L 01/23/18 09:00 25 H 89 L 01/23/18 08:58 36.8 C 64 16 98/58 L 84 L 01/23/18 08:57 98/58 L 01/23/18 07:38 36.8 C 65 16 102/65 91 L Intake/Output (24 Hrs) 01/22/18 01/23/18 01/24/18 05:59 05:59 05:59 Intake Total 150 250 800 Output Total 1130 1725 Balance -980 -1475 800 Intake: Oral (ml) 150 250 IV Intake (ml) 800 Output: Urine (ml) 1130 1725 Toilet 625 Urinal 1130 1100 Other: Weight 76.4 kg 75.8 kg Intake Quantity Yes Sufficient Number of Voids Toilet 1 Number of Stools Toilet 1 Result Diagrams: 01/20/18 18:06 01/23/18 03:19 - Physical Exam Eyes: PERRL Cardiovascular: regular rate and rhythm, systolic murmur Peripheral Pulses: 2+: carotid (R), carotid (L) Respiratory: clear to auscultate bilat Gastrointestinal: normoactive bowel sounds Neurologic: AAOx3, CN II-XII grossly intact Psychiatric: cooperative, interactive ICD10 Worksheet Patient Problems: Problems Problem Status Onset Syncope Acute Chest pain with high risk for cardiac etiology Acute
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
[2018-01-23] MEDS: ATORVASTATIN CALCIUM 40 MG TAB PO SCH (18:09)
[2018-01-23] MEDS: ASPIRIN EC 81 MG TAB PO SCH (18:11)
[2018-01-24 04:36] LABS: PLATELET COUNT 204 10^3/uL (150-400)
[2018-01-24 04:43] LABS: INR 1.22 (0.83-1.16); PROTIME(PATIENT) 15.6 SEC (12.0-15.0)
[2018-01-24] MEDS ORDERED: diphenhydrAMINE 25 MG CAP PO ONE (06:00)
[2018-01-24] MEDS ORDERED: NS 1,000 ML IV ONE (06:00)
[2018-01-24] MEDS ORDERED: DIAZEPAM 5 MG TAB PO ONE (06:00)
[2018-01-24] MEDS ORDERED: FAMOTIDINE 20 MG TAB PO ONE (06:00)
--- NOTE | 2018-01-24 06:51 | PDCARPN ---
Cardiology Progress Note Chief Complaint: syncope Assessment/Plan: Assessment: syncope severe low gradient Plan: 01/24/18 06:49 plan for dobutamine echo today RHC/C NPO explained risks/possible complications, patient willing to proceed Subjective: no complaints Reviewed/Discussed With: multidisciplinary team Time Spent with Patient: greater than 25 minutes Time Spent with Patient: Greater than 25 minutes spent on this patients care, greater than 50% of time spent counseling, educating, and coordinating care regarding the above mentioned plan. Objective: Vital Signs (8 Hrs) Temp Pulse Resp BP Pulse Ox 01/24/18 03:34 37.1 C 69 16 94/60 L 90 L 01/23/18 23:48 37.1 C 71 18 92/54 L 92 Intake/Output (24 Hrs) 01/23/18 01/24/18 01/25/18 05:59 05:59 05:59 Intake Total 250 900 Output Total 1725 1075 Balance -1475 -175 Intake: Oral (ml) 250 100 IV Intake (ml) 800 Output: Urine (ml) 1725 1075 Toilet 625 Urinal 1100 1075 Other: Weight 75.8 kg Intake Quantity Yes Yes Sufficient Number of Voids Toilet 1 Result Diagrams: 01/24/18 03:40 01/24/18 03:40 - Physical Exam Constitutional: healthy appearing Eyes: PERRL Ears, Nose, Mouth, Throat: moist mucous membranes Cardiovascular: regular rate and rhythm, systolic murmur Peripheral Pulses: 1+: femoral (R), femoral (L) Respiratory: clear to auscultate bilat Gastrointestinal: normoactive bowel sounds Genitourinary: no suprapubic tenderness Skin: no rashes Musculoskeletal: no muscular tenderness Neurologic: AAOx3 Psychiatric: cooperative ICD10 Worksheet Patient Problems: Problems Problem Status Onset Syncope Acute Chest pain with high risk for cardiac etiology Acute
[2018-01-24] MEDS: PANTOPRAZOLE SODIUM 40 MG TAB PO SCH (08:30)
[2018-01-24] MEDS: ATORVASTATIN CALCIUM 40 MG TAB PO SCH (08:30)
[2018-01-24] MEDS: ASPIRIN EC 81 MG TAB PO SCH (08:30)
[2018-01-24] MEDS ORDERED: LIDOCAINE 1% 300 MG/30 ML SDV ONE (09:22)
[2018-01-24] MEDS ORDERED: fentaNYL 100 MCG/2 ML INJ ONE (09:23)
[2018-01-24] MEDS ORDERED: MIDAZOLAM 2 MG/2 ML VIAL ONE (09:23)
[2018-01-24] MEDS ORDERED: IOPAMIDOL (ISOVUE-370) 150 ML BTL IV ONE (09:24)
[2018-01-24] MEDS ORDERED: DOBUTamine/DEXTROSE 250 ML IV ONE (10:00)
[2018-01-24] MEDS ORDERED: CLOPIDOGREL BISULFATE 75 MG TAB ONE (10:12)
--- NOTE | 2018-01-24 10:53 | CPR ---
PROCEDURE: Dobutamine stress echo. INDICATION FOR PROCEDURE: Suspicion for low-gradient severe . DESCRIPTION OF PROCEDURE: As per [facility] guidelines, the patient was brought in a fasting state, where b aseline surface echocardiographic images were obtained, which showed a valve area of 0.7 cm with a pe ak velocity approximately 3.0 cm/second. Per [facility] protocol, the patient was started on a 10 mcg/kg pe r minute infusion of dobutamine, which was increased to 3-minute intervals to a total of 40 mcg/kg pe r minute. Baseline blood pressure was 90/50. ECG showed sinus rhythm at a rate of 62. At peak infu javier of 40 mcg/kg per minute, the patient's heart rate was approximately 110 beats per minute with a blood pressure of 118/70. The velocity across the aortic valve increased to over 4.0 cm/sec, indicat ing true severity of his underlying aortic stenosis. Infusion was turned off at this point. The pat ient had no symptoms, no increase in shortness of breath or chest pain during the procedure, and tole rated the procedure well. IMPRESSION: Severe aortic stenosis, verified by dobutamine echocardiogram with an infusion rate of 4 0 mcg/kg per minute. PLAN: Right and left heart cath to follow. The patient will continue to be evaluated for his underl lexy valvular heart disease for possible TAVR in the near future. /[id number]/MODL
[2018-01-24] MEDS ORDERED: ATROPINE SULFATE 1 MG/10 ML SYR ONE (11:29)
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
--- NOTE | 2018-01-24 12:33 | ASMTCMCOM ---
CM Note CM Note Notes: 01/24/2018 Case Management Note Discussed pt during rounds this morning. Pt having right and left heart cath today. Assessing for appropriateness for TAVR. Case Management d/c poc: to be determined, anticipating independent with follow up as directed. Case Management to follow. Date Signed: 01/24/2018 12:32 PM Electronically Signed By:Santa Johnson RN
--- NOTE | 2018-01-24 12:34 | CPIP ---
DATE OF PROCEDURE: 01/24/2018 INDICATIONS: Syncope/dyspnea. PROCEDURE: 1. Nonselective left groin sheathogram. 2. A 7-Russian sheath to the left common femoral vein. 3. Right heart catheterization with Monette-Glenn catheter. 4. Bilateral coronary angiography. 5. Left heart catheterization. 6. Saphenous vein angiography to marginal 1 artery. 7. Saphenous vein angiography to mid right coronary artery. 8. Left internal mammary artery angiography to the mid left anterior descending. HISTORY: Briefly, this is an 82-year-old male with a history of recent episode of syncope. The nicolas ent's also indicates that the patient has been having worsening dyspnea while climbing stairs ov er the last 6 months. Given these findings, patient consented for a right and left heart catheteriza tion and for a stent. DESCRIPTION OF PROCEDURE: Patient brought to [facility] where the left groin was prepped and draped in a no rmal sterile fashion. Using lidocaine, a short 6-Russian sheath in left femoral artery verified angio graphically. A 7-Russian sheath to left common femoral vein. The Monette-Glenn catheter was then advance d. Wedge pressure was in the mean of 17, A-wave 19, V-wave 20. In this position, we then proceeded to place a pigtail catheter into the left ventricle with some difficulty. This was obtained and simu ltaneous pressures with the wedge and the LV pressures were obtained, which showed a mitral gradient of approximately 5. There was a pullback between the LV and the aorta of approximately 30 mmHg. Of note, the patient did have evaluation of his aortic stenosis with a dobutamine stress echo, which did show severe increta with significant increases in velocities across the aortic valve with the BV fus ion. At this time, a PA pressure was obtained, which showed a PA pressure of systolic 70, diastolic 29 with a mean of 47. RV pressure was then obtained with an RV pressure of 75 with a diastolic of 5, end of 10. RA pressure was measured to be a mean of 7, A-wave 10, V-wave 9. Cardiac output was beatrice sured to be 6.7 by Davey with a cardiac index of 3.5 with an AO sat of 95%, a P sat of 79%. Monette-Glenn catheter was then removed. A JL4 catheter was then advanced to the left coronary artery. At this t niru, the pigtail catheter was pulled back and abdominal aortogram was obtained which showed mildly an eurysmal descending aorta, patent bilateral common external and internal iliac arteries and widely pa tent CFAs. The pigtail catheter was then removed. A sheath was upsized to a 6-Russian 25 cm sheath d ue to tortuosity from the left iliac region. A JL4 catheter was then advanced to the left coronary a rtery. Images of the left coronary artery revealed a 20% to 30% proximal left main. Left circumflex artery had a 50% to 60% ostial narrowing. There was a marginal artery which was being competitive f illed by a bypass graft and a marginal 2 artery which was widely patent and free of disease. The LAD had a tight 90% lesion in its proximal aspect, however, distally there appeared to be competitive fl ow, most likely from a bypass graft. After these images were obtained, the JL4 catheter was removed. A JR4 catheter was advanced to the right coronary artery. The right coronary artery revealed a 30% ostial prox RCA. There was a 70% lesion in the proximal RCA and distally there appeared to be compe titive filling in the mid RCA. Distal RPD and RPL appeared to be patent and free of disease. After these images were obtained, the JR4 catheter was then pulled back to the 1st bypass graft, which appe ared to be a bypass. The saphenous vein graft was widely patent anastomosing to the mid OM 1. Of no te, there was some tenting of the mid OM 1 from the graft itself which resulted in a pseudo stenosis. This was verified best in the CARRIZALES caudal shots as being not significant. Distally the vessel appea red to be widely patent from this graft. At this time, this catheter was then exchanged out for a le ft internal mammary artery catheter in the left subclavian artery. Angiography of the left internal mammary artery showed a widely patent, but very small caliber THOMASON anastomosed to the mid LAD. Of no te, the distal anastomosis appeared to have what appeared to be a 40-50 percent narrowing. However, there was intact flow throughout the vessel and, again, this was a very small caliber vessel to begin with. Distally, LAD appeared to be widely patent and free of disease. THOMASON catheter was pulled riccardo k and a multipurpose catheter was then advanced and angiography of the saphenous vein graft to the ri ght coronary artery showed a widely patent saphenous vein graft anastomosed to the mid RCA. Distal R PD and RPLS appeared to be healthy and free of disease. At this time, the multipurpose was then pull ed back over an 0.035 wire. The patient tolerated the procedure well. No complications. IMPRESSION: 1. Severe [place] coronary artery disease with patent 3 out of 3 bypass grafts. 2. Distal left internal mammary artery anastomosis to mid left anterior descending has what appears to be angiographically at least 40% to 50% ostial narrowing; however, this left internal mammary herrera ry itself is a very tiny caliber vessel in comparison to the [place] left anterior descending. 3. Moderately severe pulmonary hypertension. 4. Moderately severe aortic stenosis as documented by gradients, however, verified to be a true sten osis by dobutamine echo prior to catheterization. 5. Mild mitral stenosis with a mean gradient of approximately 5-6 mm. PLAN: The patient will have his sheath discontinued now. He will have 3 hours of bed rest. Will ob tain CTs of the chest, abdomen, and pelvis, as well as carotid ultrasounds in anticipation for an kj ntual TAVR. /[id number]/MODL
--- NOTE | 2018-01-24 14:44 | ECHO ---
[email or web address] [place] [id number] Main: [phone] Fax: Transthoracic Echocardiogram Name: DERRICK DIAS MR#: [id number] Study Date: 01/24/2018 Study Time: 09:42 AM Date of : 1935 Age: 82 year(s) Height: ( ) Weight: ( ) BSA: Gender: Male Examination: Stress Echo Indication: Eval aortic stenosis Image Quality: Contrast: Requested by: Trinidad Gaxiola BP: / Heart Rate: Rhythm: Indication: Eval aortic stenosis Procedure Staff Fisher Hand Line: Emmy Real [facility] Reading Physician: Landon Rodgers MD Requesting Provider: Conclusions: Aortic Valve: Rest - AVmax leroy 2.91m/s AV max PG 34mmHG AV meanPG 21mmHG 40 MCG - AV max leroy 4.45m/s AV max PG 79mmHG AV mean PG 39mmHG. This was a dobutamine stress echo.. Measurements: Chambers Valvular Assessment AV/MV Valvular Assessment TV/PV Normal Normal Normal Name Value Range Name Value Range Name Value Range LVOTd 1.9 cm 1.9 cm mm AV meanP mmHg ( - ) Continued Measurements: Findings: Aortic Valve: Rest - AVmax leroy 2.91m/s AV max PG 34mmHG AV meanPG 21mmHG 40 MCG - AV max leroy 4.45m/s AV max PG 79mmHG AV mean PG 39mmHG. Exam Comments: This was a dobutamine stress echo.. (No Signature Object) Patient: DERRICK DIAS Study Date: 01/24/2018 Page 1 of 1 09:42 AM [id number]
[2018-01-24] MEDS ORDERED: IOPAMIDOL (ISOVUE 370) 100 ML BTL IV ONE (16:03)
[2018-01-25] MEDS ORDERED: CANN-EASE 2 GM TUBE TP PRN (06:27)
--- NOTE | 2018-01-25 06:49 | PDCARPN ---
Cardiology Progress Note Chief Complaint: syncope Assessment/Plan: Assessment: syncope severe low gradient Plan: 01/24/18 06:49 plan for dobutamine echo today RHC/LHC NPO explained risks/possible complications, patient willing to proceed 01/25/18 06:46 Cath showed patent grafts Dobutamine echo showed increased gradients across AV Patient's indicates patient has been c/o PAL/fatigue over last six months OK to d/c patient home today We will discuss case at conference this week with CT surgery Appointment already set up with me on 11 PM in office Patient and family aware Subjective: stable Reviewed/Discussed With: multidisciplinary team Time Spent with Patient: greater than 25 minutes Time Spent with Patient: Greater than 25 minutes spent on this patients care, greater than 50% of time spent counseling, educating, and coordinating care regarding the above mentioned plan. Objective: Vital Signs (8 Hrs) Temp Pulse Resp BP Pulse Ox 01/25/18 03:37 37.2 C 69 15 104/62 97 Intake/Output (24 Hrs) 01/24/18 01/25/18 01/26/18 05:59 05:59 05:59 Intake Total 900 1020 Output Total 1075 855 Balance -175 165 Intake: Oral (ml) 100 1020 IV Intake (ml) 800 Output: Urine (ml) 1075 855 Urinal 1075 855 Other: Weight 75.8 kg 75 kg Intake Quantity Yes Sufficient Number of Voids Urinal 2 Result Diagrams: 01/24/18 03:40 01/25/18 03:30 - Physical Exam Constitutional: no apparent distress Eyes: PERRL Ears, Nose, Mouth, Throat: moist mucous membranes Cardiovascular: regular rate and rhythm, systolic murmur Peripheral Pulses: 1+: femoral (R), femoral (L) Respiratory: clear to auscultate bilat Gastrointestinal: normoactive bowel sounds Genitourinary: no suprapubic tenderness Skin: no rashes Musculoskeletal: no muscular tenderness Neurologic: AAOx3 Psychiatric: cooperative ICD10 Worksheet Patient Problems: Problems Problem Status Onset Syncope Acute Chest pain with high risk for cardiac etiology Acute
[2018-01-25 07:58] VITALS: BP 111/66
[2018-01-25] MEDS: ATORVASTATIN CALCIUM 40 MG TAB PO SCH (09:27)
[2018-01-25] MEDS: PANTOPRAZOLE SODIUM 40 MG TAB PO SCH (09:27)
[2018-01-25] MEDS: ASPIRIN EC 81 MG TAB PO SCH (09:27)
--- NOTE | 2018-01-25 11:03 | PDHOMEO2F ---
Home Oxygen Face to Face Home Orders: I certify that a physician or a nurse practitioner or physician's assistant dean of students has had a gidw-oe-mmxq encounter with this patient on the date of this order due to the diagnosis listed, which relates to the primary reason the patient requires home oxygen. Alternative treatments have been tried, or considered, and deemed ineffective. It is anticipated that supplemental oxygen will result in improvement with treatment. Home oxygen qualifying diagnosis: chf, pulmonary htn, severe aortic stenosis SpO2 on room air (%): 84 Frequency of home oxygen needed: continuous Home oxygen liters per minute: 2-4 Home oxygen delivery device: nasal cannula Concentrator: Yes E-tanks for mobility and back up: Yes If ordering portable O2, is the patient mobile in the home?: Yes I certify that, based on these findings, the home oxygen is medically necessary for this patient for the following length of time. Length of time home oxygen needed: 3 months (needs reeval in 1-3 months)
--- NOTE | 2018-01-25 11:37 | PDHOMEO2F ---
Home Oxygen Face to Face Home Orders: I certify that a physician or a nurse practitioner or physician's permit review assistant has had a gdqu-wb-dbse encounter with this patient on the date of this order due to the diagnosis listed, which relates to the primary reason the patient requires home oxygen. Alternative treatments have been tried, or considered, and deemed ineffective. It is anticipated that supplemental oxygen will result in improvement with treatment. Home oxygen qualifying diagnosis: chf, aortic stenosis, pulmonary htn SpO2 on room air (%): 84 Frequency of home oxygen needed: continuous Home oxygen liters per minute: 2 Home oxygen delivery device: nasal cannula Concentrator: Yes E-tanks for mobility and back up: Yes If ordering portable O2, is the patient mobile in the home?: Yes I certify that, based on these findings, the home oxygen is medically necessary for this patient for the following length of time. Length of time home oxygen needed: 3 months (recheck home needs monthly) Home Oxygen Comment: increase oxygen to 4 lpm with activity
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
--- NOTE | 2018-01-25 11:45 | PDHOMEO2F ---
Home Oxygen Face to Face Home Orders: I certify that a physician or a nurse practitioner or physician's assistant attorney general has had a iqur-ku-aghc encounter with this patient on the date of this order due to the diagnosis listed, which relates to the primary reason the patient requires home oxygen. Alternative treatments have been tried, or considered, and deemed ineffective. It is anticipated that supplemental oxygen will result in improvement with treatment. Home oxygen qualifying diagnosis: chf, pulmonary htn, aortic stenosis. SpO2 on room air (%): 84 Frequency of home oxygen needed: continuous Home oxygen liters per minute: 4 Home oxygen delivery device: nasal cannula Concentrator: Yes E-tanks for mobility and back up: Yes If ordering portable O2, is the patient mobile in the home?: Yes I certify that, based on these findings, the home oxygen is medically necessary for this patient for the following length of time. Length of time home oxygen needed: 3 months (reasses oxygen needs)
--- NOTE | 2018-01-25 11:48 | PDHOMEO2F ---
Home Oxygen Face to Face Home Orders: I certify that a physician or a nurse practitioner or physician's clothing sales assistant has had a gkxb-ko-mpgw encounter with this patient on the date of this order due to the diagnosis listed, which relates to the primary reason the patient requires home oxygen. Alternative treatments have been tried, or considered, and deemed ineffective. It is anticipated that supplemental oxygen will result in improvement with treatment. Home oxygen qualifying diagnosis: aortic stenosis, chf Home oxygen secondary diagnosis: pulmonary htn SpO2 on room air (%): 84 Frequency of home oxygen needed: continuous Home oxygen liters per minute: 4 Home oxygen delivery device: nasal cannula Concentrator: Yes E-tanks for mobility and back up: Yes If ordering portable O2, is the patient mobile in the home?: Yes I certify that, based on these findings, the home oxygen is medically necessary for this patient for the following length of time. Length of time home oxygen needed: 3 months (reassess needs after 2 months)
--- NOTE | 2018-01-25 12:28 | ASDISCHSUM ---
Discharge Information Plan Status:Home with No Needs Medically Cleared to Leave:01/25/2018 Discharge Date:01/25/2018 CM D/C Disposition:Home, Routine, Self-Care ADT D/C Disposition:Home, Routine, Self-Care Projected Discharge Date:01/25/2018 Transportation at D/C:Family Discharge Delay Reason: Follow-Up Date:01/25/2018 Discharge Slot: Final Diagnosis: Placement Information Patient Contact Information Contact Name:LUIS Relationship: Address:[address] Work Phone: City:[place] [facility] Phone: State/Zip Code:[place] [address] Email: Financial Information Financial Class:Medicare Primary Plan Desc:MEDICARE INPATIENT Primary Plan Number:[id number] Secondary Plan Desc:Where I've Been [facility] Secondary Plan Number:[id number] Assessment Information LACE LACE Length of stay for Answers: 4-6 days current admission Acuity / Level of Answers: Yes Care: Did the patient have an inpatient admission? Comorbidities - select Answers: Coronary Artery Disease all that apply Other Notes: HTN; HLD # of Emergency department Answers: 1-2 visits in the last 6 months Score: 11 Date Signed: 01/25/2018 12:25 PM Electronically Signed By:OSEI Ambrosio [facility] CM Progress Note CM Note CM Note Notes: 01/21/2018 Case Management Note Met pt and shazia at [phone] during rounds this morning. Pt admitted after episode of syncope and hypoxia. Pt is requirig O2 and lasix currently. ECHO planned. PT eval is pending. Case Management d/c poc: To be determined. Case Management to follow. Date Signed: 01/21/2018 04:05 PM Electronically Signed By:Santa Johnson RN [facility] Progress Note CM Note CM Note Notes: 01/22/2018 Case Management Note Discussed pt during rounds this morning. and friend present. PT note today states "No PT Follow Up". Case Management d/c poc: Home independent with support from with follow up as directed. Case Management to follow. Date Signed: 01/22/2018 02:20 PM Electronically Signed By:Santa Johnson RN [facility] Progress Note CM Note CM Note Notes: 01/24/2018 Case Management Note Discussed pt during rounds this morning. Pt having right and left heart cath today. Assessing for appropriateness for TAVR. Case Management d/c poc: to be determined, anticipating independent with follow up as directed. Case Management to follow. Date Signed: 01/24/2018 12:32 PM Electronically Signed By:Santa Johnson RN Intervention Information Intervention Type:*UREÑA-Signed Date of Service:01/21/2018 10:31 AM Patient Type:Observation Staff Member:Carlita Reyna Hours: Discipline: Severity: Comment: Intervention Type:*IM-Signed Date of Service:01/25/2018 11:51 AM Patient Type:Inpatient Staff Member:Carlita Reyna Hours: Discipline: Severity: Comment:
--- NOTE | 2018-01-25 14:25 | PDCTREPORT ---
Cardiothoracic Procedure Rpt Cardiothoracic Procedure Report: I met with Jonny today. His and son were present. This was a second surgeon visit for TAVR. He certainly meets risk factors to qualify for TAVR based on age and frailty. Patient Problems: Problems Problem Status Onset Syncope Acute Chest pain with high risk for cardiac etiology Acute
== END 2018-01-25 14:44 | disposition home or self-care (01) | DRG 287 ==
LOC: EDUNIT# → F2W 21:24 → OBSVTOIN 01-21 13:49
PROVIDERS: ADMIT Hospitalist; ATTEND Hospitalist
PROC: 0DJ08ZZ Inspection of Upper Intestinal Tract, Via Natural or Artificial Opening Endoscopic (ICD-10-PCS; 2018-01-23)
PROC: B245ZZ4 Ultrasonography of Left Heart, Transesophageal (ICD-10-PCS; 2018-01-23)
PROC: 4A023N8 Measurement of Cardiac Sampling and Pressure, Bilateral, Percutaneous Approach (ICD-10-PCS; principal; 2018-01-24)
PROC: B2111ZZ Fluoroscopy of Multiple Coronary Arteries using Low Osmolar Contrast (ICD-10-PCS; principal; 2018-01-24)
PROC: B2131ZZ Fluoroscopy of Multiple Coronary Artery Bypass Grafts using Low Osmolar Contrast (ICD-10-PCS; principal; 2018-01-24)
DX: I35.0 Nonrheumatic aortic (valve) stenosis (principal); I25.10 Atherosclerotic heart disease of native coronary artery without angina pectoris; I27.20 Pulmonary hypertension, unspecified; G47.30 Sleep apnea, unspecified; I49.3 Ventricular premature depolarization; K21.9 Gastro-esophageal reflux disease without esophagitis; K22.2 Esophageal obstruction; I34.2 Nonrheumatic mitral (valve) stenosis; E78.5 Hyperlipidemia, unspecified; Z95.1 Presence of aortocoronary bypass graft; Z79.82 Long term (current) use of aspirin
CPT/HCPCS: 84484-PO; 97161-GP; G0378; G8978-GP-CI; G8979-GP-CI; G8980-GP-CI; J0461; J1250; J1644; J1940; J2250; J2704; J3010; J7613; Q9967

== ENCOUNTER 2018-01-31 06:08 | Inpatient (IN) | payer OTHER, BC ==
[2018-01-31] MEDS ORDERED: DIAZEPAM 5 MG TAB PO ONE (06:10)
[2018-01-31] MEDS ORDERED: FAMOTIDINE 20 MG TAB PO ONE (06:10)
[2018-01-31] MEDS ORDERED: diphenhydrAMINE 25 MG CAP PO ONE (06:10)
[2018-01-31] MEDS ORDERED: NS 1,000 ML IV ONE (06:10)
[2018-01-31] MEDS ORDERED: ASPIRIN EC 325 MG TAB PO ONE (06:10)
[2018-01-31] MEDS ORDERED: ceFAZolin 2 GM/DEXTROSE 100 ML IV ONE (07:00)
--- NOTE | 2018-01-31 07:02 | PDANEPAE ---
ANE History of Present Illness 82 yo for tavr ANE Past Medical History - Cardiovascular History Hx Hypertension: No Hx Arrhythmias: Yes Hx Chest Pain: Yes Hx Coronary Artery / Peripheral Vascular Disease: Yes Hx CHF / Valvular Disease: Yes Hx Palpitations: No - Pulmonary History Hx COPD: No Hx Asthma/Reactive Airway Disease: No Hx Recent Upper Respiratory Infection: No Hx Oxygen in Use at Home: Yes Hx Sleep Apnea: No - Endocrine History Hx Diabetes: No - Chronic Pain History Chronic Pain: No ANE Review of Systems Review of Systems: - Exercise capacity METS (RN): 2 METS ANE Patient History - Allergies Allergies/Adverse Reactions: No Allergies [NKA] Allergy (Verified 11/03/16 11:42) - Home Medications Home medications: home medication list seen and reviewed Home Medications: Atorvastatin Calcium [Lipitor 40 mg (*)] 40 mg PO DAILY 08/20/12 [Last Taken ] Aspirin [Aspirin 81mg (*)] 81 mg PO DAILY 01/27/18 [Last Taken Unknown] Herbals/Supplements -Info Only 1 each PO DAILY 01/27/18 [Last Taken Unknown] - Anes Hx Anes Hx: slow to awaken from anesthesia - Smoking Hx Smoking Status: Never smoked ANE Physical Exam - Airway Mallampati Score: Class 2 Mouth exam: dentures - Pulmonary Pulmonary: no respiratory distress - Cardiovascular Cardiovascular: regular rate and rhythym - ASA Status ASA Status: III ANE Anesthesia Plan Anesthesia Plan: MAC Lines/Monitors: central line
[2018-01-31] MEDS ORDERED: LIDOCAINE 1% 300 MG/30 ML SDV ONE ×2 (07:06→07:37)
[2018-01-31] MEDS ORDERED: IOPAMIDOL (ISOVUE-370) 150 ML BTL IV ONE (07:07)
[2018-01-31] MEDS ORDERED: fentaNYL 100 MCG/2 ML INJ ONE (07:17)
[2018-01-31] MEDS ORDERED: PROPOFOL/EMULSION 500 MG/50 ML BOTTLE IV ONE (07:17)
[2018-01-31] MEDS ORDERED: DEXMEDETOMIDINE HCL 400 MCG in NS 100 ML IV SCH (07:30)
--- NOTE | 2018-01-31 07:32 | PDPROPOC ---
Sedation Plan of Care Sedation Plan of Care: mental status noted, patient educated of risks, benefits , alternatives, patient can tolerate sedation ASA Classification: ASA 2 Planned drugs: other Mallampati Score: Class 3 Mallampati Reference Image: Patient passed 3-3-2 rule?: Yes
--- NOTE | 2018-01-31 07:32 | PDHPUP ---
History & Physical Update H&P update statement: This history and physical update is based on an assessment of the patient which was completed after admission or registration (within 24 hours), but prior to the surgery/procedure. H&P update: H&P reviewed & patient examined, no change in patient's condition since H&P completed
[2018-01-31] MEDS ORDERED: PROTAMINE SULFATE 50 MG/5 ML VIAL IVP ONE (08:44)
[2018-01-31] MEDS ORDERED: IBUPROFEN 800 MG TAB PO PRN (08:55)
[2018-01-31] MEDS ORDERED: ONDANSETRON 4 MG/2 ML VIAL IVP PRN (08:55)
[2018-01-31] MEDS ORDERED: HYDROmorphONE/DILAUDID 1 MG/ML INJ IVP PRN (08:55)
[2018-01-31] MEDS ORDERED: hydrALAZINE 20 MG/ML VIAL IVP PRN (08:55)
[2018-01-31] MEDS ORDERED: ATROPINE SULFATE 1 MG/10 ML SYR IVP PRN (08:55)
[2018-01-31] MEDS ORDERED: oxyCODONE IR 5 MG TAB PO PRN (08:55)
[2018-01-31] MEDS ORDERED: ONDANSETRON DISINTEGRATING 4 MG TAB PO PRN (08:55)
[2018-01-31] MEDS ORDERED: Herbals/Supplements -Info Only PO SCH (09:00)
--- NOTE | 2018-01-31 10:41 | CPIP ---
DATE OF PROCEDURE: 01/31/2018 CO-SURGEONS: Dr. Jose R Woods, Dr. Nida Nava, Dr. Denia Brown. PROCEDURE: 1. Nonselective left groin sheathogram. 2. Nonselective right groin sheathogram. 3. Upsizing of right common femoral artery sheath to 16-[place]an [place] sheath after double Perclose nena cement. 4. Placement of Medtronic CoreValve Evolut Pro 26 mm valve by the transfemoral route. INDICATION: Briefly, this is an 82-year-old male with history of severe symptomatic aortic stenosis. The patient was worked up and then deemed to be a suitable candidate for transfemoral TAVR. DESCRIPTION OF PROCEDURE: After informed consent, the patient was brought to [facility], where the patient was placed under MAC anesthesia. An 8-Belizean sheath in the left common femoral artery, verified august ographically. A 6-Belizean sheath in the right femoral artery, verified angiographically, upsized to a #16 [place] double Perclose placement. The patient was administered 2 g of Ancef prior to the case. Right internal jugular vein access was obtained with temporary pacemaker placed in the right ventricl e with capture being assessed. The left common femoral artery sheath was upsized to an 8-Belizean 25 c m sheath. The pigtail catheter was placed into the non-coronary cusp. The patient was administered a total of 9000 heparin IV. The valve was crossed successfully. An AL1 catheter with straight stiff Glidewire was switched out for a pigtail catheter, switched out for a Confida wire. The patient had the 16-Belizean sheath was removed. An inline sheath was then advanced across the wire up across the aorta. This deployed successfully with a pacing rate of beats per minute. After deployme nt, there was no perivalvular leak noted. There was excellent valvular function. At this time, the wire was removed. The right groin was closed with double Perclose. The left groin was closed with 8 -Belizean Angio-Seal. The patient tolerated the procedure well with no complications. IMPRESSION: Successful placement of Medtronic Evolut Pro 26 mm valve by the transfemoral route. PLAN: The patient will be admitted to PCU. We will discontinue the pacemaker within next 6 hours if there are no arrhythmias noted. /[id number]/MODL
--- NOTE | 2018-01-31 14:31 | POSTANESTH ---
Post Anesthetic Evaluation Cardiovascular Status: Normal, Stable Respiratory Status: Normal, Stable Level of Consciousness/Mental Status: Can Participate in Eval Pain Control: Adequate, Prn Tx Ordered Nausea/Vomiting Control: Adequate, Prn Tx Ordered Complications Possibly Related to Anesthesia: None Noted
[2018-01-31] MEDS: ASPIRIN 81 MG CHEWABLE TAB PO SCH (16:36)
[2018-01-31] MEDS: ACETAMINOPHEN 325 MG TAB PO SCH ×2 (16:36→17:19)
[2018-01-31] MEDS: ATORVASTATIN CALCIUM 40 MG TAB PO SCH (17:19)
[2018-01-31] MEDS: PANTOPRAZOLE SODIUM 40 MG TAB PO SCH (17:19)
[2018-02-01] MEDS: ACETAMINOPHEN 325 MG TAB PO SCH ×4 (02:17→18:16)
[2018-02-01 05:02] LABS: PLATELET COUNT 199 10^3/uL (150-400)
[2018-02-01 05:08] LABS: INR 1.19 (0.83-1.16); PROTIME(PATIENT) 15.3 SEC (12.0-15.0)
--- NOTE | 2018-02-01 06:47 | PDCARPN ---
Cardiology Progress Note Chief Complaint: SOB Assessment/Plan: Assessment: s/p TAVR Plan: 02/01/18 06:46 Doing well OOB IS check echo Subjective: doing well Reviewed/Discussed With: multidisciplinary team Time Spent with Patient: greater than 25 minutes Time Spent with Patient: Greater than 25 minutes spent on this patients care, greater than 50% of time spent counseling, educating, and coordinating care regarding the above mentioned plan. Objective: Vital Signs (8 Hrs) Temp Pulse Resp BP Pulse Ox 02/01/18 04:00 36.6 C 83 12 107/58 L 92 Intake/Output (24 Hrs) 01/31/18 02/01/18 02/02/18 05:59 05:59 05:59 Intake Total 1920 Output Total 1100 Balance 820 Intake: Oral (ml) 920 IV Intake (ml) 1000 Output: Urine (ml) 1100 Toilet 1100 Other: Weight 78 kg Number of Voids Toilet 1 Result Diagrams: 02/01/18 04:00 02/01/18 04:00 - Physical Exam Constitutional: healthy appearing Eyes: PERRL Ears, Nose, Mouth, Throat: moist mucous membranes Cardiovascular: regular rate and rhythm Peripheral Pulses: 1+: femoral (R), femoral (L) Respiratory: clear to auscultate bilat Gastrointestinal: normoactive bowel sounds Genitourinary: no suprapubic tenderness Skin: no rashes Musculoskeletal: no muscular tenderness Neurologic: AAOx3 ICD10 Worksheet Patient Problems: Problems Problem Status Onset Acute respiratory failure with hypoxia Acute Chest pain with high risk for cardiac etiology Acute Syncope Acute
--- NOTE | 2018-02-01 09:24 | PDMN ---
Medical Necessity Medical necessity: [facility] [id number] Aortic Valve Replacement, Transcatheter: 82 yo s/p TAVR, [facility] Only
[2018-02-01] MEDS: ASPIRIN 81 MG CHEWABLE TAB PO SCH (09:36)
[2018-02-01] MEDS: ATORVASTATIN CALCIUM 40 MG TAB PO SCH (09:37)
[2018-02-01] MEDS: PANTOPRAZOLE SODIUM 40 MG TAB PO SCH (09:37)
[2018-02-01] MEDS: CLOPIDOGREL BISULFATE 75 MG TAB PO SCH (09:37)
--- NOTE | 2018-02-01 12:08 | ECHO ---
[email or web address] [address] [address] Main: [phone] Fax: Transthoracic Echocardiogram Name: DERRICK DIAS MR#: [id number] Study Date: 02/01/2018 Study Time: 07:47 AM Date of : 1935 Age: 82 year(s) Height: 175.3 cm (69 in.) Weight: 78.02 kg (172 lb.) BSA: 1.94 m2 Gender: Male Examination: Echo Indication: Post TAVR Image Quality: Adequate Contrast: Requested by: Landon Rodgers BP: 93 mmHg/61 mmHg Heart Rate: Rhythm: Indication: Post TAVR Procedure Staff Manager Construction: Quita Banuelos RDCS Reading Physician: Landon Rodgers MD Requesting Provider: Conclusions: Borderline concentric LV hypertrophy. Normal global systolic LV function. EF is 67 %. Moderate mitral valve leaflet calcification is present. Mild to moderate mitral regurgitation. The aortic valve is a bioprosthesis. Normal functioning aortic valve prosthesis. Trivial prosthesis regurgitation. Moderate tricuspid regurgitation is present. Right ventricular systolic pressure measures 55mmHg. Measurements: Chambers Valvular Assessment AV/MV Valvular Assessment TV/PV Normal Normal Normal Name Value Range Name Value Range Name Value Range Ao Stacy (2D): 1.9 cm (1.4 cm-2.6 AV Vmax: 1.32 m/s (1 m/s-1.7 TR Vmax: 3.53 mm/s ( - ) cm) m/s) TR PGmax: 50 mmHg ( - ) IVSd (2D): 1.1 cm (0.6 cm-1.1 AV maxP mmHg ( - ) syst. PAP: 55 mmHg ( - ) cm) AV meanP mmHg ( - ) PV Vmax: 0.94 m/s (0.6 m/s-0.9 LVDd (2D): 3.9 cm (4.2 cm-5.9 JOHN (VTI): 2.0 cm ( - ) m/s) cm) MV E Vmax: 1.10 m/s ( - ) PV PGmax: 4 mmHg ( - ) LVDs (2D): 2.4 cm (2.1 cm-4 MV A Vmax: 1.02 m/s ( - ) cm) MV E/A: 1.08 ( - ) LVPWd (2D): 1.1 cm (0.6 cm-1 cm) MV PHT: 0.059 s ( - ) LVOTd 1.8 cm 1.8 cm mm MVA (PHT): 3.7 s ( - ) LVEF (BP): 67 % (>=55 %) RVDd(2D): 2.8 cm (1.9 cm-3.8 cmmm) Patient: DERRICK DIAS Study Date: 02/01/2018 Page 1 of 2 07:47 AM Continued Measurements: Chambers Valvular Assessment AV/MV Valvular Assessment TV/PV Name Value Name Value Name Value LADs: 4.6 cm MV DecTime: 187 m/s CVP (est.): 5 mmHg LADs Lon.6 cm MV E' Septal: 0.07 m/s LA Area: 22.9 cm2 MV E/E' Septal: 15.30 LA Volume: 74 ml MV E/E' Lateral: 15.30 LA Volume Index: 38.1 ml/m2 RA Area: 16.0 cm2 Additional Vessels Name Value Ao Ascendin.9 cm Inferior Vena Cava: 0.9 cm Findings: Left Ventricle: Normal size left ventricle. Borderline concentric LV hypertrophy. Normal global systolic LV function. EF is 67 %. No regional wall motion abnormality. Grade 2 diastolic dysfunction (pseudonormalized LV filling pattern). Right Ventricle: Normal size right ventricle. Normal RV function. Left Atrium: The left atrium is mildly dilated. Right Atrium: The right atrium is normal in size. Mitral Valve: The mitral valve is normal in appearance and function. Moderate mitral valve leaflet calcification is present. Mild to moderate mitral regurgitation. Aortic Valve: The aortic valve is a bioprosthesis. Normal functioning aortic valve prosthesis. The prosthetic aortic valve is normal. The orifice motion of the prosthetic aortic valve is normal. The prosthetic aortic valve regurgitation location is perivalvular. Trivial prosthesis regurgitation. TAVR. Tricuspid Valve: The tricuspid valve is normal in appearance and function. Moderate tricuspid regurgitation is present. The pulmonary artery pressure is moderately increased. Right ventricular systolic pressure measures 55mmHg. Pulmonic Valve: The pulmonic valve is normal in appearance and function. Mild pulmonic valve regurgitation is noted. Aorta: The aorta is normal. Normal size aortic root measuring 1.9 cm. Normal size ascending aorta measuring 2.9 cm. IVC: The IVC is normal sized. Pericardium: No pericardial effusion. No pleural effusion. (No Signature Object) Patient: DERRICK DIAS Study Date: 02/01/2018 Page 2 of 2 07:47 AM [id number]
--- NOTE | 2018-02-01 15:38 | ASMTCMCOM ---
CM Note CM Note Notes: 02/01/2018 Case Management Note Met w/pt and family to discuss d/c needs post TAVR. There are no therapy evals at this time. Daughter is planning to stay with pt and until the weekend.Pt son is coming to stay for the following week. Case Management d/c poc: home with family support and follow up as directed. Case Management to follow. Date Signed: 02/01/2018 03:38 PM Electronically Signed By:Santa Johnson RN
[2018-02-01] MEDS ORDERED: METOPROLOL TARTRATE 5 MG/5 ML INJ IVP ONE (19:15)
[2018-02-01] MEDS ORDERED: ACETAMINOPHEN 325 MG TAB PO PRN (20:24)
[2018-02-01] MEDS ORDERED: METOPROLOL TARTRATE 25 MG TAB PO ONE ×2 (20:30→23:00)
[2018-02-02 04:15] LABS: PLATELET COUNT 173 10^3/uL (150-400)
[2018-02-02 06:16] LABS: INR 1.22 (0.83-1.16); PROTIME(PATIENT) 15.6 SEC (12.0-15.0)
--- NOTE | 2018-02-02 06:21 | PDCARPN ---
Cardiology Progress Note Chief Complaint: SOB Assessment/Plan: Assessment: s/p TAVR Plan: 02/01/18 06:46 Doing well OOB IS check echo 02/02/18 06:20 stable overnight LBBB switching, NSR with 1st degree AV block--asymptomatic OOB d/c home today f/u next week Subjective: doing well Reviewed/Discussed With: multidisciplinary team Time Spent with Patient: greater than 25 minutes Time Spent with Patient: Greater than 25 minutes spent on this patients care, greater than 50% of time spent counseling, educating, and coordinating care regarding the above mentioned plan. Objective: Vital Signs (8 Hrs) Temp Pulse Resp BP Pulse Ox 02/02/18 03:30 36.6 C 84 12 91/56 L 92 02/01/18 23:05 105 H 112/60 02/01/18 23:00 36.7 C 101 H 13 112/60 91 L Intake/Output (24 Hrs) 02/01/18 02/02/18 02/03/18 05:59 05:59 05:59 Intake Total 1920 1140 Output Total 1100 Balance 820 1140 Intake: Oral (ml) 920 1140 IV Intake (ml) 1000 Output: Urine (ml) 1100 Toilet 1100 Other: Weight 78 kg Number of Voids Toilet 1 1 Result Diagrams: 02/02/18 03:29 02/02/18 03:29 - Physical Exam Constitutional: healthy appearing Eyes: PERRL Ears, Nose, Mouth, Throat: moist mucous membranes Cardiovascular: regular rate and rhythm Peripheral Pulses: 1+: femoral (R), femoral (L) Respiratory: clear to auscultate bilat Gastrointestinal: normoactive bowel sounds Genitourinary: no suprapubic tenderness Skin: no rashes Musculoskeletal: no muscular tenderness Neurologic: AAOx3 Psychiatric: cooperative ICD10 Worksheet Patient Problems: Problems Problem Status Onset Acute respiratory failure with hypoxia Acute Chest pain with high risk for cardiac etiology Acute Syncope Acute
--- NOTE | 2018-02-02 07:05 | GDS ---
DISCHARGE DIAGNOSIS: Aortic stenosis. HOSPITAL COURSE: Briefly, this 82-year-old male with history of bypass surgery, worsening shortness of breath, pulmonary emphysema, critical symptomatic aortic stenosis who underwent successful transfe moral TAVR on 01/31/2018. Postprocedure the patient has done very well, ambulating in the halls with out problems. Echocardiogram postprocedure shows normal LV function, with normal TAVR function with mild paravalvular leak. The patient will be discharged home today with his home medications, includi ng baby aspirin and Plavix. He will follow up with us in the office in 1 week's time. /[id number]/MODL
[2018-02-02] MEDS: CLOPIDOGREL BISULFATE 75 MG TAB PO SCH (08:07)
[2018-02-02] MEDS: ASPIRIN 81 MG CHEWABLE TAB PO SCH (08:07)
[2018-02-02] MEDS: PANTOPRAZOLE SODIUM 40 MG TAB PO SCH (08:07)
[2018-02-02] MEDS: ATORVASTATIN CALCIUM 40 MG TAB PO SCH (08:08)
[2018-02-02 08:18] VITALS: BP 100/59
--- NOTE | 2018-02-02 10:27 | ASDISCHSUM ---
Discharge Information Plan Status:Home with No Needs Medically Cleared to Leave:02/01/2018 Discharge Date:02/01/2018 CM D/C Disposition:Home, Routine, Self-Care ADT D/C Disposition:Home, Routine, Self-Care Projected Discharge Date:02/01/2018 Transportation at D/C: Discharge Delay Reason: Follow-Up Date:02/01/2018 Discharge Slot: Final Diagnosis: Placement Information Patient Contact Information Contact Name:LUIS Relationship: Address:[address] Work Phone: City:[facility] Phone: State/Zip Code:[place] [address] Email: Financial Information Financial Class:Medicare Primary Plan Desc:MEDICARE INPATIENT Primary Plan Number:[id number] Secondary Plan Desc:[employer] [facility] Secondary Plan Number:[id number] Assessment Information LACE LACE Length of stay for Answers: 1 day current admission Acuity / Level of Answers: Yes Care: Did the patient have an inpatient admission? Comorbidities - select Answers: Any tumor (including all that apply lymphoma or leukemia) Congestive heart failure Coronary Artery Disease Other Notes: HTN # of Emergency department Answers: 1-2 visits in the last 6 months Score: 12 Date Signed: 02/02/2018 10:26 AM Electronically Signed By:Santa Johnson RN [facility] CM Progress Note CM Note CM Note Notes: 02/01/2018 Case Management Note Met w/pt and family to discuss d/c needs post TAVR. There are no therapy evals at this time. Daughter is planning to stay with pt and until the weekend.Pt son is coming to stay for the following week. Case Management d/c poc: home with family support and follow up as directed. Case Management to follow. Date Signed: 02/01/2018 03:38 PM Electronically Signed By:Santa Johnson RN Intervention Information
--- NOTE | 2018-02-02 22:25 | CPEKG ---
Test Reason : OPEN Blood Pressure : / mmHG Vent. Rate : 069 BPM Atrial Rate : 081 BPM P-R Int : 210 ms QRS Dur : 104 ms QT Int : 445 ms P-R-T Axes : 061 024 071 degrees QTc Int : 477 ms Sinus bradycardia with 1st degree AV block Atrial premature complexs Probable left ventricular hypertrophy ST elevation likely secondary to LVH Confirmed by Chas Kim ([id number]) on 02/02/2018 10:25:10 PM Referred By: Confirmed By:Chas Kim
--- NOTE | 2018-02-02 22:27 | CPEKG ---
Test Reason : OPEN Blood Pressure : / mmHG Vent. Rate : 110 BPM Atrial Rate : 000 BPM P-R Int : 540 ms QRS Dur : 132 ms QT Int : 379 ms P-R-T Axes : 000 026 067 degrees QTc Int : 513 ms Junctional tachycardia IVCD, consider probable LBBB Confirmed by Chas Kim ([id number]) on 02/02/2018 10:27:25 PM Referred By: Confirmed By:Chas Kim
--- NOTE | 2018-02-03 21:21 | CPEKG ---
Test Reason : OPEN Blood Pressure : / mmHG Vent. Rate : 072 BPM Atrial Rate : 074 BPM P-R Int : 271 ms QRS Dur : 089 ms QT Int : 415 ms P-R-T Axes : 073 037 062 degrees QTc Int : 455 ms Sinus rhythm with occasional sinus arrest and pauses Atrial premature complex Prolonged [place] interval Consider left ventricular hypertrophy Borderline ST elevation, lateral leads Confirmed by Chas Kim ([id number]) on 02/03/2018 9:20:58 PM Referred By: Confirmed By:Chas Kim
== END 2018-02-02 11:29 | disposition home or self-care (01) | DRG 267 ==
LOC: FCATH 06:08 → F2W 15:49
PROVIDERS: ADMIT Internal Medicine Cardiovascular Disease; ATTEND Internal Medicine Cardiovascular Disease
PROC: 02RF38Z Replacement of Aortic Valve with Zooplastic Tissue, Percutaneous Approach (ICD-10-PCS; principal; 2018-01-31)
DX: I35.0 Nonrheumatic aortic (valve) stenosis (principal); Z00.6 Encounter for examination for normal comparison and control in clinical research program; I50.32 Chronic diastolic (congestive) heart failure; J43.9 Emphysema, unspecified; I48.91 Unspecified atrial fibrillation; I25.10 Atherosclerotic heart disease of native coronary artery without angina pectoris
CPT/HCPCS: C1760; C1769; C1894; J0461; J0690; J1644; J2704; J2720; J3010; Q9967

== ENCOUNTER → 2018-03-02 | Outpatient (CLI) | payer OTHER, BC | LOC: BHFA 11:30 | PROVIDERS: ATTEND Internal Medicine Cardiovascular Disease | DX: I35.9 Nonrheumatic aortic valve disorder, unspecified (principal) ==